=== PATIENT | female | born 1970 | race Two or more races ===

== ENCOUNTER → 2019-01-31 06:42 | Outpatient (CLI) | payer OTHER ==
[~2019-01-31 06:42] MED LIST: KETO10TA2 PO
== END | disposition home or self-care (01) ==
LOC: LAB 06:42
DX: E34.8 Other specified endocrine disorders (principal); R51 Headache; N95.1 Menopausal and female climacteric states; R53.83 Other fatigue

== ENCOUNTER → 2019-05-02 | Outpatient (CLI) | payer OTHER | END | disposition home or self-care (01) | LOC: RAD 16:11 | DX: M25.511 Pain in right shoulder (principal); M25.512 Pain in left shoulder ==

== ENCOUNTER 2023-08-22 11:37 | Emergency (ER) | payer OTHER ==
[~2023-08-22] VITALS: Ht 152.4 cm; Wt 55.8 kg
[2023-08-22] MEDS ORDERED: DICLOFENAC POTA50 MG PO (15:28)
[2023-08-22] MEDS ORDERED: CYCLOBENZAPRINE10 MG PO (15:28)
== END 2023-08-22 15:36 | disposition home or self-care (01) ==
LOC: ER 11:37
DX: M62.838 Other muscle spasm (principal); V43.62XA Car passenger injured in collision with other type car in traffic accident, initial encounter; Y93.89 Activity, other specified; Y92.413 State road as the place of occurrence of the external cause; M50.322 Other cervical disc degeneration at C5-C6 level